=== PATIENT | male | born 1955 | race Caucasian/White ===

== ENCOUNTER 2025-07-18 23:37 | Emergency (ER) | payer MEDICARE, SELFPAY ==
[2025-07-18 23:41] VITALS: BP 158/92
[2025-07-19 00:03] LABS: Hematocrit 41.0 % (39.0-52.0); Hemoglobin 14.3 g/dL (13.0-18.0); Mean Corp Hgb Conc. 34.9 g/dL (33.0-37.0); Mean Corpuscular Volume 89.5 fL (80.0-94.0); Nucleated Red Blood Cells % 0 % (-); Platelet Count 216 10^3/uL (130-400); Red Cell Dist. Width 12.2 % (11.5-14.5)
[2025-07-19 00:22] LABS: ALT (SGPT) 30 U/L (0-50); AST (SGOT) 26 U/L (17-59); Albumin 4.5 g/dl (3.5-5.0); Alkaline Phosphatase 113 U/L (38-126); Blood Urea Nitrogen 20 mg/dl (9-20); Calcium 9.8 mg/dl (8.4-10.2); Carbon Dioxide 24 mmol/L (22-30); Chloride 106 mmol/L (98-107); Glucose 119 mg/dl (70-99); Potassium 4.3 mmol/L (3.5-5.1); Sodium 136 mmol/L (135-145); Total Protein 6.8 g/dl (6.3-8.2); eGFR > 60.00
[2025-07-19 02:17] VITALS: BMI 26.2
[2025-07-19 02:18] VITALS: BP 141/76
--- NOTE | 2025-07-19 06:17 | ED.GENMED ---
History of Present Illness
General
Chief Complaint: Abdominal Symptoms
Source: patient and spouse
Exam Limitations: none
Time Seen by Provider: 07/19/25 03:57
Nursing documentation reviewed up to this point in time: agreed with
History of Present Illness
History of Present Illness:
Note:
CHIEF COMPLAINT(S)
Constipation.
HISTORY OF PRESENT ILLNESS
The patient is a 70-year-old male presenting with constipation. He reports that he has not had a bowel movement in over one week. He has a history of constipation and has been advised by his family doctor, Dr. Holliday, to use multiple suppositories
of polyethylene glycol 3350 (Miralax) and docusate sodium in the past, which was effective then. However, this intervention has been ineffective today. The patient denies experiencing any fever, chills, nausea, vomiting, or current abdominal pain.
He describes an urge to defecate but finds himself unable to do so.
REVIEW OF SYSTEMS
- Gastrointestinal: Constipation, urgency to defecate without success.
- General: Denies fever, chills.
- Gastrointestinal: Denies nausea, vomiting, or abdominal pain.
PHYSICAL EXAM
General: Alert, maintaining appropriate interaction.
Cardiovascular: Heart is at regular rate and rhythm without murmurs, rubs, or gallops.
Gastrointestinal: Bowel sounds are present in all four quadrants. The abdomen is non-tender to palpation.
PLAN
- Consideration for addressing acute constipation, potentially adjusting the treatment plan given the ineffectiveness of current therapy.
DIFFERENTIAL DIAGNOSIS
The Differential Diagnosis includes, in no particular order and is not limited to:
1. Functional Constipation
2. Large Bowel Obstruction
3. Fecal Impaction
4. Colorectal Carcinoma
5. Hypothyroidism
6. Hyperparathyroidism
7. Medications affecting bowel motility
8. Diabetes Mellitus with autonomic neuropathy
9. Neurological conditions such as Parkinson�s Disease
10. Electrolyte imbalances, notably hypokalemia.
Disposition:
SUMMARY OF ENCOUNTER
The patient, a 70-year-old male, presented to the emergency department with a week-long history of constipation. He attempted a milk and molasses enema at home but was unable to retain it. Currently, he denies any abdominal pain. Considering the
ineffectiveness of the enema, the patient was given magnesium citrate for home administration.
DISPOSITION
Discharge.
PLAN
The patient was given magnesium citrate to take at home as a treatment for constipation. He was also given return precautions and discharge instructions.
PATIENT EDUCATION AND COUNSELING
The patient was instructed on the use of magnesium citrate for relieving constipation and advised on the signs and symptoms that should prompt a return visit to the emergency department.
FOLLOW-UP INSTRUCTIONS
The patient was provided with discharge instructions including when to seek further medical attention if symptoms persist or worsen.
MEDICATION RECONCILIATION
Prescribed magnesium citrate for home use.
MEDICAL DECISION MAKING
- Complexity of Data Reviewed: Chronic conditions affecting care; potential causes include functional constipation and fecal impaction from prior history.
-Risk: Prescription medication was prescribed, specifically magnesium citrate for constipation relief.
DIAGNOSIS
- Constipation, unspecified (ICD-10: K59.00)
Course
Orders/Labs/Results
Orders:
Orders
07/18/25 23:55
Complete Blood Count/With Diff Urgent
Comprehensive Metabolic Panel Urgent
07/19/25 00:00
CR Obstruct Series W/pa Chest Urgent
Reason For Exam: NO BM for 1 week
07/19/25 04:33
Enema- Treatment ONCE
Type: Milk of Molasses
07/19/25 06:16
Magnesium Citrate [Citroma] 300 ml PO ONCE ONE
Abnormal Lab Results
07/18/25
23:55
RBC 4.58 L 10^6/uL
(4.70-6.10)
MCH 31.2 H pg
(27.0-31.0)
Absolute Neuts (auto) 7.5 H 10^3/uL
(1.4-6.5)
Lymphocytes % 17.6 L %
(20.5-51.1)
Glucose 119 H mg/dl
(70-99)
Total Bilirubin 1.4 H mg/dl
(0.2-1.3)
07/18/25 23:55
07/18/25 23:55
Vital Signs
Initial and Last Documented VS:
Initial Vital Signs
Temp Pulse Resp BP Pulse Ox
98.5 F 60 16 158/92 97
07/18/25 23:41 07/18/25 23:41 07/18/25 23:41 07/18/25 23:41 07/18/25 23:41
Last Documented Vital Signs
Temp Pulse Resp BP Pulse Ox
98.5 F 57 18 141/76 100
07/18/25 23:41 07/19/25 02:18 07/19/25 02:18 07/19/25 02:18 07/19/25 02:18
*Radiology
Radiology exam reviewed: preliminary read by ED provider (Heavy stool pattern)
*Pulse Oximetry
SaO2: 100
Oxygen Mode of Delivery: Room air
Patient hypoxic: no
*Critical Care Note
Total Time (30-74mins, 75-104mins- exclusive of procedures): Not Applicable
Update Note
Update Note:
Repeat exam patient is asymptomatic with no abdominal pain. He still feels the urge to go to the bathroom but does not want another enema at this time. He will take mag citrate as directed. We did provide him with a bottle.
ED Attending Note
-
Portions of this chart may have been created with voice recognition software.� Occasional wrong word or��sound alike� substitutions may have occurred due to the inherent limitations of voice recognition software.
Discharge Plan
Departure
Patient Disposition: Home (Routine Discharge)
Date of Disposition: 07/19/25
Time of Disposition: 06:17
Patient with high blood pressure during this ER visit?: Yes
Discharge Problem:
Constipation, Abdominal pain
Instructions: Clear Liquid Diet, Constipation, Adult (DC), BLOOD PRESSURE
Prescriptions:
New
docusate sodium [Colace] 100 mg capsule
100 mg PO DAILY Qty: 20 0RF
Referrals:
Karlo Holliday DO [Family Provider, Family Practice]
Activity Restrictions/Additional Instructions:
Your prescriptions were sent electronically to the pharmacy that you specified. Colace is a stool softener that can be used after you start having bowel movements.
Take the mag citrate as directed. If you do not get results please return to the emergency department.
Thank You for choosing [facility].
It was a pleasure meeting you and taking part in your care. We hope for your continued healing and wellness.
Please read discharge instructions in their entirety. However, they are for general education and may not describe your exact diagnosis at discharge. Information on your ER visit and medical conditions were discussed with you along with appropriate
follow up information...
If indicated, please take your medications as instructed and indicated on discharge paperwork.
Please schedule a follow up appointment as directed. Call to schedule an appointment
Please return to the emergency department with ANY change in, persisting, or worsening of symptoms. If any of your symptoms do not improve, or persist, or become more severe within 6-12 hours, please return to the emergency department for further
care.
Please return to the emergency department if you develop a headache, neck pain/stiffness, fever greater than 100.4F, chest pain, shortness of breath, persistent nausea, vomiting, slurred speech, difficulty walking, numbness/tingling, weakness, signs
of infection or any other symptoms that are worrisome to you.
If you have any questions or concerns please do not hesitate to call the Hospital at or E-mail me directly at [email or web address]
Interventions
Interventions:
*Risk Screen - Suicide Last Done: 07/18/25 23:41
*General Assessment Last Done: 07/19/25 02:18
*Neglect/Abuse Screening Last Done: 07/18/25 23:41
*ED- Fall Risk Assessment Last Done: 07/18/25 23:41
*ED COVID-19 Vaccine History Last Done: 07/18/25 23:41
DA-Mwnevn-Hvplrlkctq Assessment Last Done: 07/19/25 02:20
Discharge Date and Time
Print Language: BELARUSIAN
[2025-07-19] MEDS: CITROMA 300 ML PO (06:23)
== END 2025-07-19 06:34 | disposition home or self-care (01) ==
LOC: EMR 23:37
PROVIDERS: EMERGENCY PHYSICIAN Student in an Organized Health Care Education/Training Program; FAMILY PHYSICIAN Family Medicine
DX: K59.00 Constipation, unspecified (principal)
CPT/HCPCS: 99284; 74022; 80053; 85025